=== PATIENT | female | born 1980 | race Two or more races ===

== ENCOUNTER → 2019-12-15 | Outpatient (CLI) | payer OTHER | END | disposition home or self-care (01) | LOC: PRENATAL 09:45 | PROVIDERS: ATTEND Specialist | DX: O35.3XX1 Maternal care for (suspected) damage to fetus from viral disease in mother, fetus 1 (principal); O09.522 Supervision of elderly multigravida, second trimester; O99.012 Anemia complicating pregnancy, second trimester; O99.89 Other specified diseases and conditions complicating pregnancy, childbirth and the puerperium ==

== ENCOUNTER 2020-03-23 13:11 | Outpatient (CLI) | payer OTHER | END 2020-03-23 17:43 | disposition home or self-care (01) | LOC: OBS/DEL 13:11 | PROVIDERS: ATTEND Specialist | DX: O26.843 Uterine size-date discrepancy, third trimester (principal); O36.8193 Decreased fetal movements, unspecified trimester, fetus 3; O26.893 Other specified pregnancy related conditions, third trimester; R10.2 Pelvic and perineal pain ==

== ENCOUNTER 2020-05-01 07:36 | Inpatient (IN) | payer OTHER ==
[~2020-05-01] VITALS: Ht 165.1 cm; Wt 84.4 kg
== END 2020-05-03 18:53 | disposition home or self-care (01) | DRG 807 ==
LOC: LDR 07:36 → OB/GYN 07:36
PROVIDERS: ADMIT Specialist; ATTEND Specialist
PROC: 10E0XZZ Delivery of Products of Conception, External Approach (ICD-10-PCS; principal; 2020-05-01)
PROC: 0KQM0ZZ Repair Perineum Muscle, Open Approach (ICD-10-PCS; 2020-05-01)
PROC: 4A1HXFZ Monitoring of Products of Conception, Cardiac Rhythm, External Approach (ICD-10-PCS; 2020-05-01)
PROC: 3E033VJ Introduction of Other Hormone into Peripheral Vein, Percutaneous Approach (ICD-10-PCS; 2020-05-01)
DX: O70.1 Second degree perineal laceration during delivery (principal); Z37.0 Single live birth; Z3A.39 39 weeks gestation of pregnancy